=== PATIENT | male | born 1975 | race Hispanic/Latino ===

== ENCOUNTER 2017-02-11 06:32 | Emergency (ER) | payer OTHER ==
[~2017-02-11] VITALS: Ht 175.3 cm; Wt 83.2 kg
[~2017-02-11 06:32] MED LIST: BYSTOLIC20 MG PO; LISINOPRIL20 MG PO; NAPROSYN500 MG PO; NORCO 7.5/321 TABLET PO; PERCOCET 5/31 TABLET PO; TIZANIDINE HCL4 MG PO; TYLENOL WITH C1 EACH PO; VALIUM5 MG PO; ZESTRIL10 MG PO
[2017-02-11 06:37] VITALS: BP 146/98
[2017-02-11] MEDS ORDERED: NORCO 10/3251 TABLET PO (08:42)
[2017-02-11] MEDS ORDERED: MELOXICAM15 MG PO (08:50)
[2017-02-11] MEDS ORDERED: GABAPENTIN600 MG PO (08:50)
== END 2017-02-11 09:23 | disposition home or self-care (01) ==
LOC: EME 06:32
DX: S83.92XA Sprain of unspecified site of left knee, initial encounter (principal); Y04.0XXD Assault by unarmed brawl or fight, subsequent encounter; W19.XXXA Unspecified fall, initial encounter; I10 Essential (primary) hypertension; E78.5 Hyperlipidemia, unspecified; F17.200 Nicotine dependence, unspecified, uncomplicated
CPT/HCPCS: 73564; 99281; 99283

== ENCOUNTER → 2017-05-07 | Outpatient (CLI) | payer OTHER ==
[~2017-05-07] MED LIST changes: +GABAPENTIN600 MG PO; +MELOXICAM15 MG PO; +NORCO 10/3251 TABLET PO; +VOLTAREN 1% GE100 GM TP; +VOLTAREN-XR100 MG PO
== END | disposition home or self-care (01) ==
LOC: CDC 15:08
DX: Z01.810 Encounter for preprocedural cardiovascular examination (principal); M25.562 Pain in left knee; S83.232A Complex tear of medial meniscus, current injury, left knee, initial encounter
CPT/HCPCS: 93000

== ENCOUNTER 2017-05-11 13:24 | Day surgery (SDC) | payer OTHER ==
[~2017-05-11] VITALS: Ht 180.3 cm; Wt 90.3 kg
[2017-05-11 14:00] VITALS: BP 134/84
[2017-05-11 17:48] VITALS: BP 136/79
[2017-05-11 18:41] VITALS: BP 135/83
== END 2017-05-11 18:50 | disposition home or self-care (01) ==
LOC: SDC 13:24
PROC: 0SBD4ZZ Excision of Left Knee Joint, Percutaneous Endoscopic Approach (ICD-10-PCS; principal; 2017-05-11)
DX: S83.232A Complex tear of medial meniscus, current injury, left knee, initial encounter (principal); X50.1XXA Overexertion from prolonged static or awkward postures, initial encounter; Y08.89XA Assault by other specified means, initial encounter; Y92.009 Unspecified place in unspecified non-institutional (private) residence as the place of occurrence of the external cause; I10 Essential (primary) hypertension; R73.09 Other abnormal glucose; F17.210 Nicotine dependence, cigarettes, uncomplicated
CPT/HCPCS: J0171; J0690; J1170; J1885; J2175; J2250; J2405; J3010

== ENCOUNTER 2017-07-28 12:21 | Emergency (ER) | payer OTHER ==
[~2017-07-28] VITALS: Ht 180.3 cm; Wt 88.7 kg
[2017-07-28 13:46] LABS: HEMOGLOBIN 14.9 G/DL (12.5-16.6); MCH 31.6 PG (29.0-34.0); MCHC 33.9 G/DL (30.0-36.0); MCV 93.4 FL (86-99); PLATELET COUNT 234 K/uL (156-360); RBC DIS.WIDTH-CV 13.2 % (11.8-14.6); RBC DIS.WIDTH-SD 44.9 % (39-53); RED BLOOD COUNT 4.71 M/uL (4.00-5.50); WHITE BLOOD COUNT 3.8 K/uL (4.1-10.2)
[2017-07-28 13:56] LABS: CHLORIDE 102 mEq/L (99-109); POTASSIUM 3.5 mEq/L (3.7-5.4); SODIUM 140 mEq/L (136-147)
[2017-07-28 13:58] LABS: GLUCOSE 94 mg/dL (70-99)
[2017-07-28 14:02] LABS: GFR ESTIMATE (CALCULATED) > 59 mL/min/ (58.99-99999); UREA NITROGEN (BUN) 6 mg/dL (9-23)
[2017-07-28 14:05] LABS: TROP-I INTERPRETATION NEGATIVE; TROPONIN-I < 0.01 ng/mL (0.0-0.30)
[2017-07-28] MEDS ORDERED: NAPROSYN500 MG PO (15:25)
[2017-07-28 15:58] VITALS: BP 126/87
== END 2017-07-28 16:00 | disposition home or self-care (01) ==
LOC: EME 12:21
DX: B34.9 Viral infection, unspecified (principal); R07.89 Other chest pain; F17.200 Nicotine dependence, unspecified, uncomplicated; Z88.5 Allergy status to narcotic agent
CPT/HCPCS: 71046; 80048; 84484; 85027; 87502; 93005; 99281; 99284